=== PATIENT | male | born 1985 | race Hispanic/Latino ===

== ENCOUNTER 2018-11-08 23:35 | Emergency (ER) | payer OTHER, SELFPAY ==
[2018-11-09] MEDS ORDERED: TRAMADOL HCL 50 MG TAB ONE (00:14)
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
--- NOTE | 2018-11-09 08:33 | RAD REPORT ---
EXAM DESCRIPTION: RAD - Hand Left 3 View - 11/09/2018 12:17 am CLINICAL HISTORY: PAIN Trauma, pain COMPARISON: No comparisons FINDINGS: Acute fracture involves the distal aspect of the fifth metacarpal with adjacent soft tissu e swelling angulation at the level of the metacarpal neck. Old ulnar styloid avulsion fracture seen.
== END 2018-11-09 01:39 | disposition home or self-care (01) ==
LOC: ER 23:35
PROC: 2W3DX1Z Immobilization of Left Lower Arm using Splint (ICD-10-PCS; principal; 2018-11-08)
DX: S62.337A Displaced fracture of neck of fifth metacarpal bone, left hand, initial encounter for closed fracture (principal); Y08.89XA Assault by other specified means, initial encounter; W23.0XXA Caught, crushed, jammed, or pinched between moving objects, initial encounter; I10 Essential (primary) hypertension; E78.00 Pure hypercholesterolemia, unspecified; F90.9 Attention-deficit hyperactivity disorder, unspecified type
CPT/HCPCS: 99283

== ENCOUNTER 2019-01-31 17:57 | Emergency (ER) | payer SELFPAY ==
--- NOTE | 2019-01-31 18:35 | EDPHYS ---
Physician Documentation [facility] Name: Sandip Garcia Age: 33 yrs Sex: Male : 1985 Arrival Date: 01/31/2019 Time: 17:58 Bed 25 Private MD: ED Physician Jose Shearer Historical: - Allergies: 01/31 18:01 Lorazepam; sv 18:01 Amoxicillin; sv - PMHx: 18:01 ADD/ADHD; High Cholesterol; Hypertension; sv - PSHx: 18:01 right elbow; sv Vital Signs: 18:01 BP 140 / 78; Pulse 119; Resp 20; Temp 97.8; Pulse Ox 98% ; Weight 81.19 kg; Height 5 sv ft. 7 in. (170.18 cm); 18:01 Body Mass Index 28.04 (81.19 kg, 170.18 cm) sv MDM: 18:13 Patient medically screened. snw 18:24 Patient medically screened. daiana Administered Medications: No medications were administered Disposition: 18:19 pt walked out of exam room on my way in, not actually evaluated by this provider. snw 02/01 12:14 Co-signature as Attending Physician, Jose Shearer MD I agree with the assessment and daiana plan of care. Disposition: 01/31/19 18:35 Patient left the facility before being seen by provider. - Patient left due to unknown. Signatures: Viviane Christine, RN Lili Montanez RN RN aj Anderson, Corey, MD MD cha Therrien, Shelly, DISTRICT HOME ECONOMICS AGENT-C DISTRICT HOME ECONOMICS AGENT-Csnw
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
== END 2019-01-31 18:35 | disposition left against medical advice (07) ==
LOC: ER 17:57
DX: I10 Essential (primary) hypertension (principal); E78.00 Pure hypercholesterolemia, unspecified; F90.9 Attention-deficit hyperactivity disorder, unspecified type; Z53.21 Procedure and treatment not carried out due to patient leaving prior to being seen by health care provider
CPT/HCPCS: 99281

== ENCOUNTER 2019-04-10 04:36 | Emergency (ER) | payer SELFPAY ==
--- OUTSIDE RECORDS SUMMARY | 2019-04-10 04:38 | XMS REPORT ---
:1985 Author [facility] Address [address] [place] [address] Dr. Gonzalez [address] [place] [id number] Care Team Providers Name Role Phone Unavailable Unavailable Unavailable Problems This patient has no known problems. Allergies, Adverse Reactions, Alerts This patient has no known allergies or adverse reactions. Medications This patient has no known medications.
--- NOTE | 2019-04-10 05:30 | ER ---
Nurse's Notes [facility] Name: Sandip Garcia Age: 33 yrs Sex: Male : 1985 Arrival Date: 04/10/2019 Time: 04:39 Bed 6 Private MD: Diagnosis: Encounter for screening, unspecified Presentation: 04/10 04:51 Presenting complaint: Patient states: Generalized pain all over since this morning. tl2 Denies congestion, fever or chills. Transition of care: patient was not received from another setting of care. Onset of symptoms was April 09, 2019. Risk Assessment: Do you want to hurt yourself or someone else? Patient reports no desire to harm self or others. Initial Sepsis Screen: Does the patient meet any 2 criteria? HR > 90 bpm. Does the patient have a suspected source of infection? No. Patient's initial sepsis screen is negative. Care prior to arrival: None. 04:51 Method Of Arrival: Ambulatory tl2 04:51 Acuity: MIGUEL 3 tl2 Triage Assessment: 04:53 General: Appears in no apparent distress. uncomfortable, Behavior is calm, cooperative, tl2 appropriate for age. Pain: Complains of pain in generalized pain Pain currently is 8 out of 10 on a pain scale. Quality of pain is described as aching. Neuro: Level of Consciousness is awake, alert, obeys commands, Oriented to person, place, time, situation. Cardiovascular: Denies chest pain. Respiratory: Airway is patent Respiratory effort is even, unlabored, Respiratory pattern is regular, symmetrical. GI: No signs and/or symptoms were reported involving the gastrointestinal system. : No signs and/or symptoms were reported regarding the genitourinary system. Derm: Skin is pink, warm \T\ dry. Historical: - Allergies: 04:53 Amoxicillin; tl2 04:53 Lorazepam; tl2 - Home Meds: 04:53 Adderall Oral [Active]; lisinopril 10 mg Oral tab 1 tab once daily [Active]; tl2 - PMHx: 04:53 ADD/ADHD; High Cholesterol; Hypertension; unknown autoimmune disorder; tl2 - PSHx: 04:53 None; tl2 - Immunization history:: Adult Immunizations up to date. - Social history:: Smoking status: Patient/guardian denies using tobacco. - Ebola Screening: : No symptoms or risks identified at this time. Screenin:51 Abuse screen: Denies threats or abuse. Denies injuries from another. Nutritional rr5 screening: No deficits noted. Tuberculosis screening: No symptoms or risk factors identified. Fall Risk None identified. Total Dahl Fall Scale indicates No Risk (0-24 pts). Assessment: 04:54 General: see triage assessment. tl2 Vital Signs: 04:53 BP 147 / 107; Pulse 98; Resp 20; Temp 98(O); Pulse Ox 98% on R/A; Weight 81.65 kg; tl2 Height 5 ft. 7 in. (170.18 cm); Pain 8/10; 04:53 Body Mass Index 28.19 (81.65 kg, 170.18 cm) tl2 ED Course: 04:39 Patient arrived in ED. do 04:51 Amber Roy, RN is Primary Nurse. tl2 04:51 Patient has correct armband on for positive identification. Bed in low position. Call rr5 light in reach. Pulse ox on. NIBP on. 04:52 Triage completed. tl2 04:53 Arm band placed on right wrist. tl2 05:03 Madi Oliveira MD is Attending Physician. gs 05:08 No provider procedures requiring assistance completed. Patient did not have IV access tl2 during this emergency room visit. Administered Medications: No medications were administered Outcome: 05:08 Medical screen evaluation completed per provider. Patient declined treatment. tl2 05:08 Condition: stable 05:08 Following a medical screening exam, the patient was provided information regarding alternative care sites and resources available per registration personnel. 05:29 Discharge ordered by . 05:31 Patient left the ED. tl2 Signatures: Autumn Ogden Taylor, RN RN tl2 Madi Oliveira MD MD gs Roque, Raymond RN RN rr5
--- NOTE | 2019-04-10 05:30 | EDPHYS ---
Physician Documentation [facility] Name: Sandip Garcia Age: 33 yrs Sex: Male : 1985 Arrival Date: 04/10/2019 Time: 04:39 Bed 6 Private MD: ED Physician Madi Oliveira HPI: 04/10 05:17 This 33 yrs old Male presents to ER via Ambulatory with complaints of Pain. 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 ON NO TREATMENT AND DID NOT TAKE ANY PAIN MEDICINE SUCH IBUPROFEN . WORSE TODAY. Historical: - Allergies: 04:53 Amoxicillin; tl2 04:53 Lorazepam; tl2 - Home Meds: 04:53 Adderall Oral [Active]; lisinopril 10 mg Oral tab 1 tab once daily [Active]; tl2 - PMHx: 04:53 ADD/ADHD; High Cholesterol; Hypertension; unknown autoimmune disorder; tl2 - PSHx: 04:53 None; tl2 - Immunization history:: Adult Immunizations up to date. - Social history:: Smoking status: Patient/guardian denies using tobacco. - Ebola Screening: : No symptoms or risks identified at this time. ROS: 05:17 All other systems are negative. gs Exam: 05:17 Head/Face: Normocephalic, atraumatic. Eyes: Pupils equal round and reactive to light, gs extra-ocular motions intact. Lids and lashes normal. Conjunctiva and sclera are non-icteric and not injected. Cornea within normal limits. Periorbital areas with no swelling, redness, or edema. ENT: Nares patent. No nasal discharge, no septal abnormalities noted. Tympanic membranes are normal and external auditory canals are clear. Oropharynx with no redness, swelling, or masses, exudates, or evidence of obstruction, uvula midline. Mucous membranes moist. Neck: Trachea midline, no thyromegaly or masses palpated, and no cervical lymphadenopathy. Supple, full range of motion without nuchal rigidity, or vertebral point tenderness. No Meningismus. Chest/axilla: Normal chest wall appearance and motion. Nontender with no deformity. No lesions are appreciated. Cardiovascular: Regular rate and rhythm with a normal S1 and S2. No gallops, murmurs, or rubs. Normal PMI, no JVD. No pulse deficits. Respiratory: Lungs have equal breath sounds bilaterally, clear to auscultation and percussion. No rales, rhonchi or wheezes noted. No increased work of breathing, no retractions or nasal flaring. Abdomen/GI: Soft, non-tender, with normal bowel sounds. No distension or tympany. No guarding or rebound. No evidence of tenderness throughout. Back: No spinal tenderness. No costovertebral tenderness. Full range of motion. Skin: Warm, dry with normal turgor. Normal color with no rashes, no lesions, and no evidence of cellulitis. MS/ Extremity: Pulses equal, no cyanosis. Neurovascular intact. Full, normal range of motion. Neuro: Awake and alert, GCS 15, oriented to person, place, time, and situation. Cranial nerves II-XII grossly intact. Motor strength 5/5 in all extremities. Sensory grossly intact. Cerebellar exam normal. Normal gait. 05:17 Constitutional: The patient appears alert, awake. Vital Signs: 04:53 BP 147 / 107; Pulse 98; Resp 20; Temp 98(O); Pulse Ox 98% on R/A; Weight 81.65 kg; tl2 Height 5 ft. 7 in. (170.18 cm); Pain 8/10; 04:53 Body Mass Index 28.19 (81.65 kg, 170.18 cm) tl2 MDM: 05:03 Patient medically screened. 05:17 Data reviewed: vital signs, nurses notes. Counseling: I had a detailed discussion with gs the patient and/or guardian regarding: the historical points, exam findings, and any diagnostic results supporting the discharge/admit diagnosis, the need for outpatient follow up, a paint booth operator. 05:17 Counseling: I had a detailed discussion with the patient and/or guardian regarding: the gs presence of at least one elevated blood pressure reading (>120/80) during this emergency department visit. Special discussion: I have referred the patient to see his PCP for further evaluation of high blood pressure. Administered Medications: No medications were administered Disposition: 04/10/19 05:29 Discharged to Home. Impression: Encounter for screening, unspecified. - Condition is Stable. - Medication Reconciliation Form, Thank You Letter, Antibiotic Education, Prescription Opioid Use form. Signatures: Amber Roy RN RN tl2 Madi Oliveira MD MD gs Corrections: (The following items were deleted from the chart) 05:31 05:29 04/10/2019 05:29 Discharged to Home. Impression: Encounter for screening, tl2 unspecified. Condition is Stable. Forms are Medication Reconciliation Form, Thank You Letter, Antibiotic Education, Prescription Opioid Use. gs
== END 2019-04-10 05:31 | disposition home or self-care (01) ==
LOC: ER 04:36
DX: Z13.9 Encounter for screening, unspecified (principal); I10 Essential (primary) hypertension; F90.9 Attention-deficit hyperactivity disorder, unspecified type; Z88.1 Allergy status to other antibiotic agents; Z88.8 Allergy status to other drugs, medicaments and biological substances
CPT/HCPCS: 99282

== ENCOUNTER 2019-11-14 02:13 | Emergency (ER) | payer SELFPAY ==
--- OUTSIDE RECORDS SUMMARY | 2019-11-14 02:16 | XMS REPORT ---
:1985 [facility] Address [address] [place] [address] Dr. Gonzalez [address] [place] [id number] Care Team Providers Name Role Phone Unavailable Unavailable Unavailable Problems This patient has no known problems. Allergies, Adverse Reactions, Alerts This patient has no known allergies or adverse reactions. Medications This patient has no known medications.
[2019-11-14] MEDS ORDERED: MORPHINE 4 MG/ML SYR ONE (02:38)
[2019-11-14] MEDS ORDERED: ONDANSETRON 4 MG/2 ML VIAL ONE (02:38)
[2019-11-14] MEDS ORDERED: NA CHLORIDE 0.9% 1,000 ML ONE ×2 (02:38→02:47)
[2019-11-14 02:45] LABS: Absolute Lymphocytes (CBC) 2.2 K/uL (0.7-4.9); Basophils % 0.6 % (0-1.3); Hematocrit 45.2 % (39.6-49.0); Lymphocytes % 38.4 % (15.3-44.8); MPV 8.8 fL (7.6-11.3)
[2019-11-14 03:10] LABS: ALT/SGPT 111 U/L (12-78); AST/SGOT 54 U/L (15-37); Albumin 3.7 g/dL (3.4-5.0); Alkaline Phosphatase 55 U/L (45-117); BUN Blood Urea Nitrogen 9 mg/dL (7-18); Bicarbonate 25 mmol/L (21-32); Bilirubin Direct < 0.1 mg/dL (0-0.2); Bilirubin Total 0.3 mg/dL (0.2-1.0); Glucose Level 122 mg/dL (74-106); Lipase 116 U/L (73-393); Potassium 3.7 mmol/L (3.5-5.1); Protein, Total 7.7 g/dL (6.4-8.2); Sodium Level 139 mmol/L (136-145)
[2019-11-14] MEDS ORDERED: KETOROLAC 30 MG/ML INJ ONE (04:40)
--- NOTE | 2019-11-14 04:53 | EDPHYS ---
Physician Documentation [facility] Name: Sandip Garcia Age: 34 yrs Sex: Male : 1985 Arrival Date: 11/14/2019 Time: 02:16 Bed 6 Private MD: ED Physician Chuck Jorgensen HPI: 11/14 02:30 This 34 yrs old Male presents to ER via Ambulatory with complaints of pkl Abdominal Pain. 02:30 The patient presents with abdominal pain in the left lower quadrant. Onset: The pkl symptoms/episode began/occurred today, and became worse 3 hour(s) ago. The symptoms do not radiate. Associated signs and symptoms: none. Historical: - Allergies: 02:24 Amoxicillin; rv 02:24 Lorazepam; rv - Home Meds: 02:24 Adderall Oral [Active]; lisinopril 10 mg Oral cap 1 tab once daily [Active]; rv - PMHx: 02:24 ADD/ADHD; High Cholesterol; Hypertension; unknown autoimmune disorder; rv - PSHx: 02:24 None; rv - Immunization history:: Adult Immunizations up to date. - Coronavirus screen:: The patient has NOT traveled to [place], [place], or [place] in the past 14 days. Proceed with normal triage process as indicated. The patient has NOT had contact with known/suspected case of Coronavirus? Proceed with normal triage procedures. - Social history:: Smoking status: Patient denies any tobacco usage or history of. - Ebola Screening: : No symptoms or risks identified at this time. ROS: 02:30 Eyes: Negative for injury, pain, redness, and discharge, ENT: Negative for injury, pkl pain, and discharge, Neck: Negative for injury, pain, and swelling, Cardiovascular: Negative for chest pain, palpitations, and edema, Respiratory: Negative for shortness of breath, cough, wheezing, and pleuritic chest pain. 02:30 Abdomen/GI: Positive for abdominal pain, of the left lower quadrant. 02:30 Back: Negative for acute changes. pkl 02:30 : Negative for urinary symptoms. 02:30 MS/extremity: Negative for acute changes. 02:30 Skin: Negative for rash. 02:30 Neuro: Negative for altered mental status. Exam: 02:30 Head/Face: Normocephalic, atraumatic. Eyes: Pupils equal round and reactive to light, pkl extra-ocular motions intact. Lids and lashes normal. Conjunctiva and sclera are non-icteric and not injected. Cornea within normal limits. Periorbital areas with no swelling, redness, or edema. ENT: Nares patent. No nasal discharge, no septal abnormalities noted. Tympanic membranes are normal and external auditory canals are clear. Oropharynx with no redness, swelling, or masses, exudates, or evidence of obstruction, uvula midline. Mucous membranes moist. Neck: Trachea midline, no thyromegaly or masses palpated, and no cervical lymphadenopathy. Supple, full range of motion without nuchal rigidity, or vertebral point tenderness. No Meningismus. Chest/axilla: Normal chest wall appearance and motion. Nontender with no deformity. No lesions are appreciated. Cardiovascular: Regular rate and rhythm with a normal S1 and S2. No gallops, murmurs, or rubs. Normal PMI, no JVD. No pulse deficits. Respiratory: Lungs have equal breath sounds bilaterally, clear to auscultation and percussion. No rales, rhonchi or wheezes noted. No increased work of breathing, no retractions or nasal flaring. 02:30 Abdomen/GI: Bowel sounds: normal, Palpation: moderate abdominal tenderness, in the left lower quadrant. 02:30 Back: Exam negative for acute changes. 02:30 : Exam negative for acute changes. 02:30 Musculoskeletal/extremity: Exam is negative for acute changes. 02:30 Skin: Exam negative for rash. 02:30 Neuro: Orientation: is normal, Mentation: is normal, Cranial nerves: grossly normal, Motor: is normal. Vital Signs: 02:22 BP 137 / 94; Pulse 108; Resp 18; Temp 97.6; Pulse Ox 96% on R/A; Weight 88 kg; Height 5 rv ft. 7 in. (170.18 cm); Pain 9/10; 03:00 BP 134 / 91; Pulse 95; Resp 16; Pulse Ox 96% on R/A; rv 03:30 BP 144 / 101; Pulse 95; Resp 17; Pulse Ox 96% on R/A; rv 03:49 Pain 6/10; rv 04:51 BP 131 / 90; Pulse 91; Resp 18; Pulse Ox 96% on R/A; rv 02:22 Body Mass Index 30.38 (88.00 kg, 170.18 cm) rv MDM: 02:17 Patient medically screened. pkl 04:46 Data reviewed: vital signs, nurses notes, lab test result(s), radiologic studies, CT pkl scan. ED course: Discussed lab. and CT Scan results with patient. Advised to follow up with PCP in 1 to 2 days. return if symptoms are worse. Patient understood instructions. 11/14 02:28 Order name: Basic Metabolic Panel pkl 11/14 02:28 Order name: CBC with Diff pkl 11/14 02:28 Order name: Creatinine for Radiology pkl 11/14 02:28 Order name: Hepatic Function pkl 11/14 02:28 Order name: Lipase pkl 11/14 02:56 Order name: CBC with Automated Diff; Complete Time: 02:57 EDMS 11/14 02:30 Order name: CT Abd/Pelvis - PO and IV Contrast pkl 11/14 03:10 Order name: Basic Metabolic Panel; Complete Time: 03:19 EDMS 11/14 03:10 Order name: Liver (Hepatic) Function; Complete Time: 03:19 EDMS 11/14 03:10 Order name: Lipase; Complete Time: 03:19 EDMS 11/14 03:10 Order name: Creatinine (Radiology Only); Complete Time: 03:19 EDMS 04 04:35 Order name: Urine Dipstick--Ancillary (enter results) cm6 11/14 02:28 Order name: IV Saline Lock; Complete Time: 02:40 pkl 11/14 02:28 Order name: Labs collected and sent; Complete Time: 02:40 pkl 11/14 02:40 Order name: Urine Dipstick-Ancillary (obtain specimen); Complete Time: 04:48 rv Administered Medications: 02:39 Drug: NS 0.9% 1000 ml Route: IV; Rate: 1000 ml; Site: left antecubital; rv 03:49 Follow up: IV Status: Completed infusion; IV Intake: 1000ml rv 02:40 Drug: NS 0.9% 1000 ml Route: IV; Rate: 125 ml/hr; Site: left antecubital; rv 05:00 Follow up: IV Status: Completed infusion rv 02:40 Drug: morphine 4 mg {Note: rass 0.} Route: IVP; Site: left antecubital; rv 03:49 Follow up: Pain 6/10 Adult; Response: No adverse reaction; Pain is decreased; RASS: rv Alert and Calm (0) 02:40 Drug: Zofran 4 mg Route: IVP; Site: left antecubital; rv 03:49 Follow up: Response: No adverse reaction rv 04:38 Drug: TORadol 30 mg Route: IVP; Site: left antecubital; ea 04:59 Follow up: Response: No adverse reaction rv Disposition: 11/14/19 04:53 Discharged to Home. Impression: Abdominal pain. Elevated liver functions. Mild central mesentric panniculitis. Small fat-containing nonincarcerated umbilical hernia. - Condition is Stable. - Prescriptions for Ultram 50 mg Oral Tablet - take 1 tablet by ORAL route every 8 hours As needed; 15 tablet. - Work release form, Medication Reconciliation Form, Thank You Letter, Antibiotic Education, Prescription Opioid Use form. - Follow up: Private Physician; When: 1 - 2 days; Reason: Re-evaluation by your physician. - Problem is new. - Symptoms have improved. Signatures: Dispatcher [employer] EDMS Chuck Jorgensen MD MD pkl Marilynn Lee, RN RN Juaquin Allred, RN RN rv Corrections: (The following items were deleted from the chart) 05:00 04:53 11/14/2019 04:53 Discharged to Home. Impression: Abdominal pain. Elevated liver rv functions. Mild central mesentric panniculitis. Small fat-containing nonincarcerated umbilical hernia. Condition is Stable. Forms are Medication Reconciliation Form, Thank You Letter, Antibiotic Education, Prescription Opioid Use. Follow up: Private Physician; When: 1 - 2 days; Reason: Re-evaluation by your physician. Problem is new. Symptoms have improved. pkl
--- NOTE | 2019-11-14 04:53 | ER ---
Nurse's Notes [facility] Name: Sandip Garcia Age: 34 yrs Sex: Male : 1985 Arrival Date: 11/14/2019 Time: 02:16 Bed 6 Private MD: Diagnosis: Abdominal pain. Elevated liver functions. Mild central mesentric panniculitis. Small fat-containing nonincarcerated umbilical hernia Presentation: 11/14 02:21 Presenting complaint: Patient states: patient started this afternoon, progressively rv worsen throughout the day. denies nausea/vomiting/diarrhea/ constipation. pain scale of 9/10. Transition of care: patient was not received from another setting of care. Onset of symptoms was November 13, 2019 at 12:00. Risk Assessment: Do you want to hurt yourself or someone else? Patient reports no desire to harm self or others. Initial Sepsis Screen: Does the patient meet any 2 criteria? No. Patient's initial sepsis screen is negative. Does the patient have a suspected source of infection? No. Patient's initial sepsis screen is negative. Care prior to arrival: None. 02:21 Method Of Arrival: Ambulatory rv 02:21 Acuity: MIGUEL 3 rv Triage Assessment: 02:24 General: Appears in no apparent distress. General: Behavior is calm, cooperative. Pain: rv Complains of pain in abdomen. GI: Abdomen is flat, non-distended. Historical: - Allergies: 02:24 Amoxicillin; rv 02:24 Lorazepam; rv - Home Meds: 02:24 Adderall Oral [Active]; lisinopril 10 mg Oral cap 1 tab once daily [Active]; rv - PMHx: 02:24 ADD/ADHD; High Cholesterol; Hypertension; unknown autoimmune disorder; rv - PSHx: 02:24 None; rv - Immunization history:: Adult Immunizations up to date. - Coronavirus screen:: The patient has NOT traveled to [place], [place], or [place] in the past 14 days. Proceed with normal triage process as indicated. The patient has NOT had contact with known/suspected case of Coronavirus? Proceed with normal triage procedures. - Social history:: Smoking status: Patient denies any tobacco usage or history of. - Ebola Screening: : No symptoms or risks identified at this time. Screenin:24 Abuse screen: Denies threats or abuse. Denies injuries from another. Nutritional rv screening: No deficits noted. Tuberculosis screening: No symptoms or risk factors identified. Fall Risk None identified. Assessment: 02:25 GI: Bowel sounds present X 4 quads. Abd is soft and non tender X 4 quads. rv 02:25 General: Appears in no apparent distress. Behavior is calm, cooperative. Pain: rv Complains of pain in left lower quadrant Pain radiates to suprapubic area Pain currently is 9 out of 10 on a pain scale. Neuro: Level of Consciousness is awake, alert, obeys commands, Oriented to person, place, time, situation. Cardiovascular: Patient's skin is warm and dry. Respiratory: Airway is patent. Derm: Skin is intact. 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 patient instructed to drink rv it. 02:42 Reassessment: patient done with the oral contrast. Paula informed thru phonecall at 0240. rv 03:51 Reassessment: Patient appears in no apparent distress at this time. Patient and/or rv family updated on plan of care and expected duration. Pain level reassessed. Patient is alert, oriented x 3, equal unlabored respirations, skin warm/dry/pink. PATIENT TAKEN TO CT SCAN. 04:50 Reassessment: Patient appears in no apparent distress at this time. Patient and/or rv family updated on plan of care and expected duration. Pain level reassessed. Patient is alert, oriented x 3, equal unlabored respirations, skin warm/dry/pink. DIAGNOSTIC RESULTS EXPLAINED BY DR CASTELLANO TO THE PATIENT, AND PLAN OF CARE. PATIENT AGREED. Vital Signs: 02:22 BP 137 / 94; Pulse 108; Resp 18; Temp 97.6; Pulse Ox 96% on R/A; Weight 88 kg; Height 5 rv ft. 7 in. (170.18 cm); Pain 9/10; 03:00 BP 134 / 91; Pulse 95; Resp 16; Pulse Ox 96% on R/A; rv 03:30 BP 144 / 101; Pulse 95; Resp 17; Pulse Ox 96% on R/A; rv 03:49 Pain 6/10; rv 04:51 BP 131 / 90; Pulse 91; Resp 18; Pulse Ox 96% on R/A; rv 02:22 Body Mass Index 30.38 (88.00 kg, 170.18 cm) rv ED Course: 02:16 Patient arrived in ED. [id number] 02:16 Chuck Castellano MD is Attending Physician. pkl 02:21 Juaquin Jennings, INGRID is Primary Nurse. rv 02:22 Triage completed. rv 02:24 Patient has correct armband on for positive identification. Pulse ox on. NIBP on. rv 02:24 Patient placed in the treatment room, on a stretcher, Patient notified of wait time. rv 02:35 Inserted saline lock: 20 gauge in left antecubital area, using aseptic technique. Blood rv collected. 02:35 Initial lab(s) drawn, by me, sent to lab. rv 04:59 No provider procedures requiring assistance completed. IV discontinued, intact, rv bleeding controlled, No redness/swelling at site. Pressure dressing applied. 07:22 CT Abd/Pelvis - PO and IV Contrast In Process Unspecified. EDMS Administered Medications: 02:39 Drug: NS 0.9% 1000 ml Route: IV; Rate: 1000 ml; Site: left antecubital; rv 03:49 Follow up: IV Status: Completed infusion; IV Intake: 1000ml rv 02:40 Drug: NS 0.9% 1000 ml Route: IV; Rate: 125 ml/hr; Site: left antecubital; rv 05:00 Follow up: IV Status: Completed infusion rv 02:40 Drug: morphine 4 mg {Note: rass 0.} Route: IVP; Site: left antecubital; rv 03:49 Follow up: Pain 6/10 Adult; Response: No adverse reaction; Pain is decreased; RASS: rv Alert and Calm (0) 02:40 Drug: Zofran 4 mg Route: IVP; Site: left antecubital; rv 03:49 Follow up: Response: No adverse reaction rv 04:38 Drug: TORadol 30 mg Route: IVP; Site: left antecubital; ea 04:59 Follow up: Response: No adverse reaction rv Intake: 03:49 IV: 1000ml; Total: 1000ml. rv Outcome: 04:53 Discharge ordered by . pkl 04:59 Discharged to home ambulatory, with family. rv 04:59 Condition: good 04:59 Discharge instructions given to patient, Instructed on discharge instructions, follow up and referral plans. medication usage, Demonstrated understanding of instructions, follow-up care, medications, Prescriptions given X 1. 05:00 Patient left the ED. rv Signatures: Dispatcher [employer] EDChuck Steven MD MD pkl Antunez, Elena RN RN Juaquin Allred RN RN rv Gutierrez, Jessica jg7
[2019-11-14 05:07] VITALS: TEMP 97.6; O2SAT 96
[2019-11-14 05:12] VITALS: BP 131/90
[2019-11-14 06:02] LABS: Urine Blood NEGATIVE (NEG); Urine Glucose NEGATIVE (NEG); Urine Protein NEGATIVE (NEG)
--- NOTE | 2019-11-14 10:02 | RAD REPORT ---
EXAM DESCRIPTION: CT ABDOMEN AND PELVIS WITH CONTRAST. CLINICAL HISTORY: Progressively worsening abdominal pain. COMPARISON: None. TECHNIQUE: Axial CT imaging of the abdomen and pelvis performed with intravenous contrast. Reformatt ed coronal and sagittal images reviewed. A dose reduction technique was utilized with automated exposure control according to patient size. FINDINGS: Mild dependent bilateral lower lobe plate changes. Heart is normal in size. Liver is enlarged to approximately 25 cm. Mild decreased hepatic attenuation. No mass or biliary dila tation. Normal gallbladder, spleen, pancreas, adrenal glands, and kidneys. Normal caliber aorta and i nferior vena cava. No adenopathy. Mesenteric vessels appear normal. There is a normal appearance of the stomach and small bowel loops. Normal appendix in the right lower quadrant. Unremarkable colon. Mild central mesenteric edema without adenopathy. No ascites or free a ir. Small fat-containing umbilical hernia. Unremarkable bladder prostate. No pelvic free fluid. Bilateral L5 pars defect with minimal anterior s ubluxation of L5 on S1. Unremarkable hips and bony pelvis. Soft tissues appear unremarkable. IMPRESSION: 1. Hepatomegaly with moderate steatosis. 2. Mild central mesenteric panniculitis. 3. Small fat-containing nonincarcerated umbilical hernia. 4. Bilateral L5 spondylolysis with grade 1 spondylolisthesis of L5 on S1. Electronically signed by: Kristie Espinoza DO 11/14/2019 4:38 AM [employer] Due to temporary technical issues with the PACS/Fluency reporting system, reports are being signed by the in house radiologist as a courtesy to ensure prompt reporting. The interpreting radiologist is f ully responsible for the content of the report.
== END 2019-11-14 05:00 | disposition home or self-care (01) ==
LOC: ER 02:13
DX: R79.89 Other specified abnormal findings of blood chemistry (principal); K65.4 Sclerosing mesenteritis; K42.9 Umbilical hernia without obstruction or gangrene; I10 Essential (primary) hypertension; F90.9 Attention-deficit hyperactivity disorder, unspecified type; Z88.1 Allergy status to other antibiotic agents; Z88.8 Allergy status to other drugs, medicaments and biological substances
CPT/HCPCS: 36415; 74177; 80048; 80076; 81003; 83690; 85025; 96361; 96374; 96375; 99284; J2405; J7030; Q9967

== ENCOUNTER 2020-05-06 14:04 | Emergency (ER) | payer SELFPAY ==
[2020-05-06] MEDS ORDERED: ONDANSETRON 4 MG/2 ML VIAL ONE (14:50)
[2020-05-06] MEDS ORDERED: NA CHLORIDE 0.9% 1,000 ML ONE (14:50)
[2020-05-06] MEDS ORDERED: MORPHINE 4 MG/ML SYR ONE (14:50)
[2020-05-06 14:52] LABS: Absolute Lymphocytes (CBC) 2.4 K/uL (0.7-4.9); Basophils % 0.5 % (0-1.3); Hematocrit 44.2 % (39.6-49.0); Lymphocytes % 37.8 % (15.3-44.8); MPV 9.1 fL (7.6-11.3); RBC Red Blood Cell Count 5.07 M/uL (4.33-5.43)
[2020-05-06 15:17] LABS: ALT/SGPT 40 U/L (12-78); AST/SGOT 27 U/L (15-37); Albumin 4.2 g/dL (3.4-5.0); Alkaline Phosphatase 59 U/L (45-117); BUN Blood Urea Nitrogen 13 mg/dL (7-18); Bicarbonate 25 mmol/L (21-32); Bilirubin Direct < 0.1 mg/dL (0-0.2); Bilirubin Total 0.3 mg/dL (0.2-1.0); Glucose Level 103 mg/dL (74-106); Lipase 111 U/L (73-393); Potassium 3.6 mmol/L (3.5-5.1); Sodium Level 137 mmol/L (136-145)
[2020-05-06] MEDS ORDERED: FENTANYL CITR 100 MCG/2 ML ONE (15:39)
[2020-05-06 16:33] LABS: Urine Blood NEGATIVE (NEG); Urine Glucose NEGATIVE (NEG); Urine Protein NEGATIVE (NEG)
[2020-05-06] MEDS ORDERED: KETOROLAC 30 MG/ML INJ ONE (16:53)
[2020-05-06] MEDS ORDERED: CYCLOBENZAPRINE 10 MG TAB ONE (16:54)
[2020-05-06 17:19] VITALS: TEMP 97
[2020-05-06 17:25] VITALS: BP 133/58; O2SAT 95
--- NOTE | 2020-05-06 21:23 | RAD REPORT ---
EXAM DESCRIPTION: CTAbdomen Pelvis W Contrast - 05/06/2020 9:09 pm CLINICAL HISTORY: Abdominal pain. ABD PAIN COMPARISON: Abdomen Pelvis W Contrast dated 11/14/2019 TECHNIQUE: Biphasic CT imaging of the abdomen and pelvis was performed with 100 ml non-ionic IV cont rast. All CT scans are performed using dose optimization technique as appropriate and may include automated exposure control or mA/KV adjustment according to patient size. FINDINGS: The lung bases are clear. The liver demonstrates diffuse fatty infiltration. The spleen, pancreas, adrenal glands and kidneys a re within normal limits. No bowel obstruction, free air, free fluid or abscess. Moderate fat containing umbilical hernia. The appendix is normal. No evidence of significant lymphadenopathy. No suspicious bony findings. IMPRESSION: Fatty liver. Moderate fat containing umbilical hernia.
--- NOTE | 2020-05-06 21:33 | ER ---
Nurse's Notes [facility] Name: Sandip Garcia Age: 34 yrs Sex: Male : 1985 Arrival Date: 05/06/2020 Time: 14:07 Bed 13 Private MD: Diagnosis: Unspecified abdominal pain Presentation: 05/06 14:10 Chief complaint: Patient states: Sudden onset of right sided abdominal pain today. ll1 Coronavirus screen: Patient denies a cough. Patient denies shortness of breath or difficulty breathing. Patient denies measured and/or subjective temperature greater than 100.4F prior to today's visit. Patient denies travel on a cruise ship or to a country the [facility] currently lists as an affected area. Patient denies contact with known and/or suspected case of COVID-19. Proceed with normal triage. Ebola Screen: Patient denies travel to an Ebola-affected area in the 21 days before illness onset. Initial Sepsis Screen: Does the patient meet any 2 criteria? HR > 90 bpm. Risk Assessment: Do you want to hurt yourself or someone else? Patient reports no desire to harm self or others. Onset of symptoms was May 06, 2020. 14:10 Method Of Arrival: Ambulatory ll1 14:10 Acuity: MIGUEL 3 ll1 Historical: - Allergies: 14:10 Amoxicillin; ll1 14:10 Lorazepam; ll1 - PMHx: 14:10 High Cholesterol; Hypertension; unknown autoimmune disorder; ADD/ADHD; ll1 - Immunization history:: Flu vaccine is not up to date. - Social history:: Smoking status: Patient denies any tobacco usage or history of. Patient/guardian denies using alcohol, street drugs. Screenin:51 Abuse screen: Denies threats or abuse. Denies injuries from another. Nutritional jr10 screening: No deficits noted. Tuberculosis screening: No symptoms or risk factors identified. Fall Risk No fall in past 12 months (0 pts). No secondary diagnosis (0 pts). IV access (20 points). Ambulatory Aid- None/Bed Rest/Nurse Assist (0 pts). Gait- Normal/Bed Rest/Wheelchair (0 pts) Mental Status- Oriented to own ability (0 pts). Assessment: 14:48 General: Appears uncomfortable, Behavior is cooperative, appropriate for age. Pain: jr10 Complains of pain in right upper quadrant and right lower quadrant Pain does not radiate. Pain currently is 8 out of 10 on a pain scale. Quality of pain is described as pressure, squeezing, Pain began 30 min ago. Is continuous, Alleviated by rest, exercise, repositioning, position Noted to be grimacing, guarding, moaning. Neuro: No deficits noted. Cardiovascular: No deficits noted. Respiratory: No deficits noted. GI: Abdomen is round non-distended, Bowel sounds present X 4 quads. Abdomen is tender to palpation in right upper quadrant and right lower quadrant Reports lower abdominal pain, upper abdominal pain, diarrhea, Patient currently denies nausea, vomiting. : Reports urgency, urinary frequency, Denies burning with urination, inability to void. EENT: No deficits noted. Derm: No deficits noted. Musculoskeletal: No deficits noted. Vital Signs: 14:10 BP 138 / 95; Pulse 99; Resp 17; Temp 97.0; Pulse Ox 95% ; Pain 9/10; ll1 14:55 BP 145 / 102; Pulse 76; Resp 20; Pulse Ox 95% on R/A; jr10 15:30 BP 153 / 83; Pulse 84; Resp 20; Pulse Ox 95% ; jr10 16:30 BP 134 / 79; Pulse 89; Resp 20; Pulse Ox 98% on R/A; jr10 17:05 BP 133 / 58; Pulse 86; Resp 20; Pulse Ox 95% on R/A; Pain 3/10; jr10 ED Course: 14:07 Patient arrived in ED. mr 14:11 Triage completed. ll1 14:11 Arm band placed on Patient placed in an exam room, on a stretcher. ll1 14:15 Hunter Toscano NP is PHCP. pm1 14:15 Stone Shafer MD is Attending Physician. pm1 14:26 Flory Pires, INGRID is Primary Nurse. jr10 14:45 Inserted saline lock: 20 gauge in right hand, using aseptic technique. IV is patent, is jr10 intact, Flushed. 14:52 Patient has correct armband on for positive identification. Bed in low position. Call jr10 light in reach. Side rails up X2. Pulse ox on. NIBP on. 17:10 No provider procedures requiring assistance completed. IV discontinued, No jr10 redness/swelling at site. Pressure dressing applied. 21:09 CT Abd/Pelvis - IV Contrast Only In Process Unspecified. EDMS Administered Medications: 14:45 Drug: Zofran (Ondansetron) 4 mg Route: IVP; Site: right hand; jr10 15:39 Follow up: Response: No adverse reaction jr10 15:39 Follow up: Response: No adverse reaction; Pain is unchanged, physician notified jr10 14:46 Drug: NS 0.9% 1000 ml Route: IV; Rate: 1000 ml; Site: right hand; jr10 17:11 Follow up: Response: No adverse reaction; IV Status: Completed infusion jr10 14:47 Drug: morphine 4 mg Route: IVP; Site: right hand; jr10 17:12 Follow up: Response: No adverse reaction jr10 15:39 Drug: fentaNYL (PF) 50 mcg Route: IVP; Site: right hand; jr10 16:30 Follow up: Response: No adverse reaction; Pain is decreased jr10 16:51 Drug: Flexeril 10 mg Route: PO; jr10 17:08 Follow up: Response: No adverse reaction; Pain is decreased jr10 16:54 Drug: TORadol - Ketorolac 15 mg Route: IVP; Site: right hand; jl7 17:09 Follow up: Response: No adverse reaction; Pain is decreased jr10 Outcome: 16:14 Discharge ordered by MD. pm1 17:10 Discharged to home ambulatory. jr10 17:10 Condition: improved 17:10 Discharge instructions given to patient, Instructed on discharge instructions, follow up and referral plans. Demonstrated understanding of instructions, follow-up care, medications, Prescriptions given X 1. 17:12 Patient left the ED. jr10 Signatures: Dispatcher [employer] EDSC Mavis Pires EvertonHunter, DIRECTOR OF PLACEMENT DIRECTOR OF PLACEMENT pm1 Nancy Spring RN RN jl7 Aman Quintana RN RN ll1 Flory Pires RN RN jr10
--- NOTE | 2020-05-06 21:33 | EDPHYS ---
Physician Documentation [facility] Name: Sandip Garcia Age: 34 yrs Sex: Male : 1985 Arrival Date: 05/06/2020 Time: 14:07 Bed 13 Private MD: ED Physician Stone Shafer HPI: 05/06 14:20 This 34 yrs old Male presents to ER via Ambulatory with complaints of pm1 Abdominal Pain. 14:20 The patient presents with abdominal pain right lower quadrant. Onset: The pm1 symptoms/episode began/occurred just prior to arrival, today, onset while cooking with fryer. The symptoms do not radiate. Associated signs and symptoms: Pertinent negatives: nausea, vomiting, and diarrhea, chest pain, constipation, dysuria, fever, shortness of breath. The symptoms are described as sharp. Modifying factors: The symptoms are alleviated by lying down keeping both knees bent. the symptoms are aggravated by movement. Severity of pain: in the emergency department the pain is actually worse. The patient has not experienced similar symptoms in the past. The patient has not recently seen a physician. Historical: - Allergies: 14:10 Amoxicillin; ll1 14:10 Lorazepam; ll1 - PMHx: 14:10 High Cholesterol; Hypertension; unknown autoimmune disorder; ADD/ADHD; ll1 - Immunization history:: Flu vaccine is not up to date. - Social history:: Smoking status: Patient denies any tobacco usage or history of. Patient/guardian denies using alcohol, street drugs. ROS: 14:20 Constitutional: Negative for fever, chills, and weight loss, Cardiovascular: Negative pm1 for chest pain, palpitations, and edema, Respiratory: Negative for shortness of breath, cough, wheezing, and pleuritic chest pain. 14:20 Back: Negative for injury and pain, MS/Extremity: Negative for injury and deformity, Skin: Negative for injury, rash, and discoloration, Neuro: Negative for headache, weakness, numbness, tingling, and seizure. 14:20 Abdomen/GI: Positive for abdominal pain, of the right lower quadrant, Negative for nausea, vomiting, and diarrhea. Exam: 14:20 Constitutional: This is a well developed, well nourished patient who is awake, alert, pm1 and in no acute distress. Head/Face: Normocephalic, atraumatic. Chest/axilla: Normal chest wall appearance and motion. Nontender with no deformity. No lesions are appreciated. Cardiovascular: Regular rate and rhythm with a normal S1 and S2. No gallops, murmurs, or rubs. Normal PMI, no JVD. No pulse deficits. Respiratory: Lungs have equal breath sounds bilaterally, clear to auscultation and percussion. No rales, rhonchi or wheezes noted. No increased work of breathing, no retractions or nasal flaring. 14:20 Back: No spinal tenderness. No costovertebral tenderness. Full range of motion. Skin: Warm, dry with normal turgor. Normal color with no rashes, no lesions, and no evidence of cellulitis. MS/ Extremity: Pulses equal, no cyanosis. Neurovascular intact. Full, normal range of motion. 14:20 Abdomen/GI: Inspection: abdomen appears normal, Palpation: soft, in all quadrants, moderate abdominal tenderness, in the right lower quadrant, rebound tenderness, is not appreciated. 14:20 Neuro: Exam negative for acute changes, Orientation: is normal, Motor: is normal, moves all fours. Vital Signs: 14:10 BP 138 / 95; Pulse 99; Resp 17; Temp 97.0; Pulse Ox 95% ; Pain 9/10; ll1 14:55 BP 145 / 102; Pulse 76; Resp 20; Pulse Ox 95% on R/A; jr10 15:30 BP 153 / 83; Pulse 84; Resp 20; Pulse Ox 95% ; jr10 16:30 BP 134 / 79; Pulse 89; Resp 20; Pulse Ox 98% on R/A; jr10 17:05 BP 133 / 58; Pulse 86; Resp 20; Pulse Ox 95% on R/A; Pain 3/10; jr10 MDM: 14:15 Patient medically screened. pm1 16:02 Data reviewed: vital signs. Data interpreted: Pulse oximetry: on room air is 95 %. pm1 Interpretation: normal. Counseling: I had a detailed discussion with the patient and/or guardian regarding: the historical points, exam findings, and any diagnostic results supporting the discharge/admit diagnosis, lab results, radiology results, the need for outpatient follow up, to return to the emergency department if symptoms worsen or persist or if there are any questions or concerns that arise at home. 05/06 14:20 Order name: Basic Metabolic Panel; Complete Time: 15:19 pm1 05/06 14:20 Order name: CBC with Diff; Complete Time: 15:08 pm1 05/06 14:20 Order name: Hepatic Function; Complete Time: 15:19 pm1 05/06 14:20 Order name: Lipase; Complete Time: 15:19 pm1 05/06 15:39 Order name: Urine Dipstick-Ancillary; Complete Time: 16:37 EDMS 05/06 14:20 Order name: IV Saline Lock; Complete Time: 14:41 pm1 05/06 14:20 Order name: CT Abd/Pelvis - IV Contrast Only pm1 05/06 14:20 Order name: Labs collected and sent; Complete Time: 14:41 pm1 05/06 14:20 Order name: Urine Dipstick-Ancillary (obtain specimen); Complete Time: 15:40 pm1 Administered Medications: 14:45 Drug: Zofran (Ondansetron) 4 mg Route: IVP; Site: right hand; jr10 15:39 Follow up: Response: No adverse reaction jr10 15:39 Follow up: Response: No adverse reaction; Pain is unchanged, physician notified jr10 14:46 Drug: NS 0.9% 1000 ml Route: IV; Rate: 1000 ml; Site: right hand; jr10 17:11 Follow up: Response: No adverse reaction; IV Status: Completed infusion jr10 14:47 Drug: morphine 4 mg Route: IVP; Site: right hand; jr10 17:12 Follow up: Response: No adverse reaction jr10 15:39 Drug: fentaNYL (PF) 50 mcg Route: IVP; Site: right hand; jr10 16:30 Follow up: Response: No adverse reaction; Pain is decreased jr10 16:51 Drug: Flexeril 10 mg Route: PO; jr10 17:08 Follow up: Response: No adverse reaction; Pain is decreased jr10 16:54 Drug: TORadol - Ketorolac 15 mg Route: IVP; Site: right hand; jl7 17:09 Follow up: Response: No adverse reaction; Pain is decreased jr10 Disposition: 18:50 Co-signature as Attending Physician, Stone Shafer MD. rn Disposition: 05/06/20 16:14 Discharged to Home. Impression: Unspecified abdominal pain. - Condition is Stable. - Discharge Instructions: Abdominal Pain, Adult, Muscle Strain. - Prescriptions for Cyclobenzaprine 10 mg Oral Tablet - take 1 tablet by ORAL route every 8 hours As needed; 30 tablet. Diclofenac Sodium 75 mg Oral Tablet Sustained Release - take 1 tablet by ORAL route 2 times per day; 30 tablet. - Medication Reconciliation Form, Thank You Letter, Antibiotic Education, Prescription Opioid Use form. - Follow up: Emergency Department; When: As needed; Reason: Worsening of condition. Follow up: Private Physician; When: 2 - 3 days; Reason: Recheck today's complaints, Continuance of care, Re-evaluation by your physician. - Problem is new. - Symptoms have improved. Signatures: Dispatcher [employer] EDNC Stone Shafer MD MD rn Hunter Toscano, SHALINI BOOKKEEPING CLERK pm1 Nancy Spring RN RN jl7 Aman Quintana RN RN ll1 Flory Pires RN RN jr10 Corrections: (The following items were deleted from the chart) 16:57 15:39 URINE DIPSTICK--ANCILLARY+U.LAB.BRZ ordered. [facility] 17:12 16:14 05/06/2020 16:14 Discharged to Home. Impression: Unspecified abdominal pain. jr10 Condition is Stable. Forms are Medication Reconciliation Form, Thank You Letter, Antibiotic Education, Prescription Opioid Use. Follow up: Emergency Department; When: As needed; Reason: Worsening of condition. Follow up: Private Physician; When: 2 - 3 days; Reason: Recheck today's complaints, Continuance of care, Re-evaluation by your physician. Problem is new. Symptoms have improved. pm1
--- OUTSIDE RECORDS SUMMARY | 2020-05-06 21:53 | XMS REPORT | Continuity of Care Document ---
:1985 Author Organization [facility] t Address [address] [place] [address] Dr. Gonzalez [address] [place] [id number] Care Team Providers Name Role Phone Unavailable Unavailable Unavailable Problems This patient has no known problems. Allergies, Adverse Reactions, Alerts This patient has no known allergies or adverse reactions. Medications This patient has no known medications. Procedures This patient has no known procedures. Results This patient has no known results.
== END 2020-05-06 17:12 | disposition home or self-care (01) ==
LOC: ER 14:04
DX: R10.31 Right lower quadrant pain (principal); I10 Essential (primary) hypertension; Z88.1 Allergy status to other antibiotic agents; Z88.5 Allergy status to narcotic agent
CPT/HCPCS: 36415; 74177; 80048; 80076; 81003; 82565; 83690; 85025; 96361; 96374; 96375; 99284; J2405; J3010; J7030; Q9967

== ENCOUNTER 2024-07-28 10:25 | Day surgery (SDC) | payer OTHER ==
--- NOTE | 2024-07-27 11:57 | EKG ---
Test Date: 2024-07-25 Test Time: 11:18:00 Billboard Poster Helper: EVIE MEASUREMENT RESULTS: Intervals: Rate: 68 OH: 152 QRSD: 90 QT: 378 QTc: 401 [place]: P: 26 OH: 152 QRS: 62 T: 36 INTERPRETIVE STATEMENTS: Normal sinus rhythm Normal ECG No previous ECG available for comparison Electronically Signed On 07-27-24 11:53:09 CDT by Dnailo Betancourt
[2024-07-28] MEDS: Ringers Lactate 1,000 ML IV ONE (10:45)
[2024-07-28] MEDS: OXYMETAZOLINE HCL 0.05% 15ML NAS ONE ×2 (10:55→13:51)
[2024-07-28] MEDS ORDERED: ONDANSETRON 4 MG/2 ML VIAL ONE (12:53)
[2024-07-28] MEDS ORDERED: FENTANYL CITR 100 MCG/2 ML ONE (12:53)
[2024-07-28] MEDS ORDERED: propofoL 200 MG/20 ML VIAL IV ONE (12:53)
[2024-07-28] MEDS ORDERED: ROCURONIUM 50 MG/5 ML VIAL IV ONE (12:53)
[2024-07-28] MEDS ORDERED: MIDAZOLAM HCL 2 MG/2 ML INJ ONE (12:53)
[2024-07-28] MEDS ORDERED: LIDOCAINE 2% MPF 5 ML VIAL ONE ×2 (12:53→14:21)
[2024-07-28] MEDS ORDERED: BACITRACIN OINTMENT 14 GM TUBE TOP ONE (12:56)
[2024-07-28] MEDS ORDERED: HYDROMORPHONE HCL 1 MG/ML INJ ONE (13:04)
[2024-07-28] MEDS ORDERED: SUGAMMADEX SODIUM 200 MG/2 ML VIAL IV ONE (13:04)
[2024-07-28] MEDS ORDERED: dexAMETHasone 10 MG/ML VIAL ONE (13:29)
[2024-07-28] MEDS: LIDOCAINE HCL/EPINEPHRINE 20 ML MDV ONE (13:34)
--- NOTE | 2024-07-28 14:47 | P.OP ---
Date of Service: 07/28/24 Surgeon: Dr. Viviane Hu MD Gas Leak Inspector: None Procedure: 1. Evaluation of sleep disordered breathing by examination of upper airway using an endoscope; 2. septoplasty 3. bilateral inferior turbinate reduction via submucosal cauterization and down fracture Preoperative diagnosis: Moderate or severe obstructive sleep apnea with positive airway pressure intolerance. Deviated septum, turbinate hypertrophy, nasal obstruction Postoperative diagnosis: Moderate or severe sleep apnea with positive pressure airway intolerance. Same Anesthesia: IV sedation followed by induction to general anesthesia via endotracheal tube Estimated blood loss: None Complications: [None] Brief clinical history: This is a 39-year-old patient with a history of moderate to severe symptomatic obstructive sleep apnea who is intolerant and unable to achieve benefit with positive pressure therapy. Body mass index of 33. They present today for drug-induced sleep endoscopy to better characterize the location and pattern of obstruction and to predict appropriate medical and/or surgical options moving forward. Additionally his septal deviation and turbinate hypertrophy with nasal obstruction was inadequately treated with medical therapy and septoplasty with turbinate reduction was required Procedure findings: There was complete concentric palatal obstruction and they did not appear to be a candidate anatomically for hypoglossal nerve stimulation therapy. Alternative sleep surgery options or nonsurgical treatments will need to be discussed with the patient Description of procedure: The patient was brought to the endoscopy suite and was administered anesthesia via standard drug-induced sleep endoscopy protocol. The patient was administered propofol while under monitoring including oxygen concentration, CO2, blood pressure, and pulse under conditions felt to mimic sleep. The patient was nonresponsive to verbal commands but maintained spontaneous respiration. Patient was noted to have observed apnea and snoring consistent with diagnosis of obstructive sleep apnea. Under these conditions, the flexible endoscope was inserted into both sides of the nose and advanced to the nasopharynx, and oral pharynx with observation of the larynx. The patient's left nasal cavity was well decongested. The inferior turbinate was enlarged. The middle turbinate was unremarkable. The middle meatus was clear from polyps or obstructive masses or significant nasal secretions. The sphenoethmoid recess was unremarkable. The nasopharynx showed no significant adenoid hypertrophy or residual adenoid tissue, no masses ulcerations or other anatomic abnormalities. With spontaneous respiration and snoring, the patient w as noted to have complete concentric collapse at the level of the soft palate. With advancement of the scope towards the oral pharynx, the base of tongue did not appear to be significantly involved in the patient's airway obstruction. The epiglottis, supraglottis and vocal cords appeared unremarkable. The vocal cords were mobile with no obstructive lesions and the subglottis appeared widely patent. At the conclusion of the exam, the scope was withdrawn. There was no evidence of any injury to the nasal mucosa and no evidence of active epistaxis. Following completion of the drug-induced sleep endoscopy, full general anesthesia including oral tracheal intubation was performed by the anesthesiology staff in preparation for the patient's septoplasty and turbinate reduction. Following induction of general anesthesia, the head of bed was turned 90 degrees. The patient's nasal hairs were trimmed with scissors and the nasal cavity was examined. The patient was noted to have moderate caudal septal deviation to the right with additional hide bony deviation to the right. The patient's turbinates were well decongested following preoperative administration of Afrin. Following examination, the septum was injected with 1% lidocaine with epinephrine and the nasal cavity was packed with Afrin-soaked pledgets. The patient was then prepped and draped in a standard fashion for nasal surgery. Using a headlight and nasal speculum a left hemitransfixion incision was made and right and left subperichondrial flaps were elevated. The left flap elevated easily off the cartilage. On the right side anteriorly the cartilage seemed somewhat irregular and the mucosa was somewhat scarred. Working on the inferior aspect the mucosa elevated more easily and the caudal elevator was used to lo osen the mucosal scarring allowing full mobilization of the subperichondrial flap. The patient was noted to have a significant concavity of the anterior septum. Incision was made through the midportion of the cartilaginous septum and an irregular fragment of cartilage measuring approximately 2.5 x 2 cm was removed from the posterior aspect of the cartilaginous septum. The deviated portion of the caudal septum was then carefully measured for preservation of a 1 cm L-strut and additional fragment of cartilage measuring approximately 8 x 15 mm was harvested just posterior to the L-strunt in order to improve the curvature. A small amount of bone was removed using a Davis rongeur from the more posterior deviation superiorly. The portions of removed cartilage were gently shaved and trimmed in order to create a more planar fragment of cartilage. These fragments were then replaced between the mucosal flaps in order to provide support and structure to the septum. The replaced cartilage grafts were secured to the mucosa using a quilting suture on a small Juwan needle. The hemitransfixion incision was then closed in a running fashion using resorbable sutures. Attention was then turned to the inferior turbinates. A needlepoint Bovie was used to apply submucosal cautery along the inferior, medial, and anterior portion of the inferior turbinate on the right and left side with minimal bleeding noted. A Hale elevator was then used to down fracture the right and left inferior turbinate in order to improve the nasal airway. Minimal bleeding was noted but decision was made to apply Gelfoam packing to the nasal cavity to allow for reduction of crusting and to hold moisture within the nasal cavity during the initial healing timeframe. An orogastric tube was passed for removal of stomach contents which was minimal. Very little blood was noted in the oropharynx and there was no evidence of ongoing bleeding. A mustache dressing was applied and the patient was returned to care of anesthesia for awakening extubation in the operating room which proceeded without difficulty. Disposition: The patient will follow-up in Dr. Hu in about 10 days for evaluation of healing and reevaluation of his nasal airway. Nasal saline and standard nasal precautions are recommended. Further management of the patient's obstructive sleep apnea will be discussed at his postoperative visit
[2024-07-28] MEDS: HYDROMORPHONE HCL 1 MG/ML INJ ONE ×2 (14:51→15:01)
[2024-07-28] MEDS: ONDANSETRON 4 MG/2 ML VIAL ONE (14:51)
[2024-07-28 15:53] VITALS: BP 138/90; TEMP 98.3; O2SAT 96
== END 2024-07-28 16:05 | disposition home or self-care (01) ==
LOC: OR 10:25
PROVIDERS: ATTEND Otolaryngology
PROC: 0CJY8ZZ Inspection of Mouth and Throat, Via Natural or Artificial Opening Endoscopic (ICD-10-PCS; principal; 2024-07-28 11:30)
PROC: 09SM4ZZ Reposition Nasal Septum, Percutaneous Endoscopic Approach (ICD-10-PCS; 2024-07-28 11:30)
DX: G47.33 Obstructive sleep apnea (adult) (pediatric) (principal); J34.2 Deviated nasal septum; J34.3 Hypertrophy of nasal turbinates; J34.89 Other specified disorders of nose and nasal sinuses; Z68.33 Body mass index [BMI] 33.0-33.9, adult
CPT/HCPCS: 93005; 42975; 30520; 30140; J2704; J2001 ×2; J2250; J3010; J1100; J1170 ×3; J2405 ×2; J7120